=== PATIENT | female | born 1990 | race African-American/Black ===

== ENCOUNTER 2021-05-30 10:11 | Emergency (ER) | payer BC, OTHER ==
[~2021-05-30] VITALS: Ht 149.9 cm; Wt 72.7 kg
--- NOTE | 2021-05-30 11:08 | PHYS DOC ---
General Adult EDM: Chief Complaint: BACK PAIN - NO INJURY HPI: HPI: Patient is a 30 year old female who present to ER for evaluation of back pain started on last Friday. 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 Patient denies any bowel or bladder incontinence. Patient denies any injury. Patient denies any abdominal pain, no nausea vomiting. Patient denies any urinary frequency or urgency. Patient said the pain on her back is from the top of her back all the way down to the lower lumbar area. Patient denies any weakness or numbness in her lower extremity. Review of Systems: Review of Systems: Constitutional: Denies fever or chills. [] Eyes: Denies change in visual acuity. [] HENT: Denies nasal congestion or sore throat. [] Respiratory: Denies cough or shortness of breath. [] Cardiovascular: Denies chest pain or edema. [] GI: Denies abdominal pain, nausea, vomiting, bloody stools or diarrhea. [] : Denies dysuria. [] Musculoskeletal: Positive for back pain, no joint pain. Integument: Denies rash. [] Neurologic: Denies headache, focal weakness or sensory changes. [] Endocrine: Denies polyuria or polydipsia. [] Lymphatic: Denies swollen glands. [] Psychiatric: Denies depression or anxiety. [] Heart Score: C/O Chest Pain: N/A Risk Factors: Risk Factors: DM, Current or recent (<one month) smoker, HTN, HLP, family history of CAD, obesity. Risk Scores: Score 0 - 3: 2.5% MACE over next 6 weeks - Discharge Home Score 4 - 6: 20.3% MACE over next 6 weeks - Admit for Clinical Observation Score 7 - 10: 72.7% MACE over next 6 weeks - Early Invasive Strategies Physical Exam: PE: Constitutional: Well developed, well nourished, no acute distress, non-toxic appearance. [] HENT: Normocephalic, atraumatic, bilateral external ears normal, oropharynx moist, no oral exudates, nose normal. [] Eyes: PERRLA, EOMI, conjunctiva normal, no discharge. [] Neck: Normal range of motion, no tenderness, supple, no stridor. [] Cardiovascular:Heart rate regular rhythm, no murmur [] Lungs & Thorax: Bilateral breath sounds clear to auscultation [] Abdomen: Bowel sounds normal, soft, no tenderness, no masses, no pulsatile masses. [] Skin: Warm, dry, no erythema, no rash. [] Back: The muscle along the thoracic and lumbar spine is tender to palpation, there is no midline vertebral tenderness to palpation. Extremities: No tenderness, no cyanosis, no clubbing, ROM intact, no edema. [] Neurologic: Alert and oriented X 3, normal motor function, normal sensory function, no focal deficits noted. There is strong bilateral symmetrical dick[place] tendon reflexes. Psychologic: Affect normal, judgement normal, mood normal. [] Current Patient Data: Labs: Laboratory Tests Test 05/30/21 11:01 05/30/21 11:04 Urine Collection Type Void Urine Color Red Urine Clarity Clear Urine pH 6.0 Urine Specific [place] 1.025 Urine Protein 30 mg/dL Urine Glucose (UA) Negative mg/dL Urine Ketones (Stick) 40 mg/dL Urine Blood Large Urine Nitrite Negative Urine Bilirubin Small Urine Urobilinogen Dipstick 1.0 mg/dL Urine Leukocyte Esterase Small Urine RBC Tntc /HPF Urine WBC 11-20 /HPF Urine Squamous Epithelial Cells Few /LPF Urine Bacteria Moderate /HPF Urine Mucus Marked /LPF Bedside Urine HCG, Qualitative Hcg negative Current Medications Medications (Trade) Dose Ordered Sig/Anastasiya Route PRN Reason Start Time Stop Time Status Last Admin Dose Admin Ketorolac Tromethamine (Toradol Im) 60 mg 1X ONCE IM 05/30/21 12:15 05/30/21 12:16 DC 05/30/21 12:33 Methylprednisolone Sodium Succinate (SOLU-Medrol 125MG VIAL) 125 mg 1X ONCE IM 05/30/21 12:15 05/30/21 12:16 DC 05/30/21 12:33 Orphenadrine Citrate (Norflex) 60 mg 1X ONCE IM 05/30/21 12:30 05/30/21 12:31 DC 05/30/21 12:33 EKG: EKG: [] Radiology/Procedures: Radiology/Procedures: [facility] [address] [place] [address] IMAGING REPORT Signed PATIENT: CARITO CONNELL ACCOUNT: [id number] : 1990 LOCATION: ER AGE: 30 SEX: F EXAM STATUS: REG ER ORD. PHYSICIAN: BROCK BELLE DO REASON: BACK PAIN PROCEDURE: THORACIC SPINE 3V EXAM: 1. THORACIC SPINE 3 VIEWS. 2. LUMBAR SPINE 3 VIEWS. HISTORY: Back pain COMPARISON: None. FINDINGS: A minimal upper thoracic dextrocurvature is within normal limits. No fractures are identified. Intervertebral disc heights are maintained. Lumbar alignment is maintained. No fractures are identified. Intervertebral disc heights are maintained. IMPRESSION: 1. No fracture or malalignment. Electronically signed by: Elijah Mixon MD (05/30/2021 12:06 PM) [id number] DICTATED and SIGNED BY: JAQUI MIXON MD DATE: 05/30/21 [id number] 0 Course & Med Decision Making: Course & Med Decision Making Pertinent Labs and Imaging studies reviewed. (See chart for details) Patient is a 30-year-old female who present to ER due to back pain. X-ray did not show any acute problem. Patient will be discharged home, she will be prescribed NSAIDs and muscle relaxer, she will need to follow-up with her family physician for outpatient evaluation and treatment. Dragon Disclaimer: Dragon Disclaimer: This electronic medical record was generated, in whole or in part, using a voice recognition dictation system. Departure Departure Impression: Primary Impression: Back pain Disposition: 01 HOME / SELF CARE / HOMELESS Condition: STABLE Referrals: SHAYLA BELL MD (PCP) Please follow up with your doctor next week for reevaluation Patient Instructions: Back Pain, Adult Additional Instructions: Thank you for visiting our Emergency Department. We appreciate you trusting us with your care. If any additional problems come up don't hesitate to return to visit us. Please follow up with your primary care provider so they can plan additional care if needed and know about the problem that you had. If symptoms worsen come back to the Emergency Department. Any concerning symptoms that start such as chest pain, shortness of air, weakness or numbness on one side of the body, running high fevers or any other concerning symptoms return to the ER. Scripts Naproxen Sodium (ANAPROX DS) 550 Mg Tablet 1 TAB PO BID PRN for PAIN for 15 Days, #30 TAB 0 Refills Prov: BROCK BELLE DO 05/30/21 Cyclobenzaprine Hcl (CYCLOBENZAPRINE HCL) 10 Mg Tablet 1 TAB PO TID PRN for MUSCLE SPASMS, #30 TAB Prov: BROCK BELLE DO 05/30/21 BROCK BELLE DO May 30, 2021 11:08
[2021-05-30 11:19] LABS: BILIRUBIN,URINE SMALL (NEG); CLARITY,URINE CLEAR; NITRITE,URINE NEGATIVE (NEG); PROTEIN,URINE 30 mg/dL (NEG-TRACE)
[2021-05-30 11:22] LABS: COLOR,URINE RED
[2021-05-30 11:24] LABS: RBC,URINE TNTC /HPF (0-2)
[2021-05-30 11:25] LABS: BACTERIA,URINE MODERATE /HPF (0-FEW)
--- NOTE | 2021-05-30 12:09 | RAD ---
EXAM: 1. THORACIC SPINE 3 VIEWS. 2. LUMBAR SPINE 3 VIEWS. HISTORY: Back pain COMPARISON: None. FINDINGS: A minimal upper thoracic dextrocurvature is within normal limits. No fractures are identifi ed. Intervertebral disc heights are maintained. Lumbar alignment is maintained. No fractures are identified. Intervertebral disc heights are maintain ed. IMPRESSION: 1. No fracture or malalignment. Electronically signed by: Elijah Mixon MD (05/30/2021 12:06 PM) [id number]
[2021-05-30] MEDS ORDERED: methylPREDNISolone SOD SUCC PF 125 MG/2 ML VIAL. IM ONE (12:15)
[2021-05-30] MEDS ORDERED: KETOROLAC 60 MG/2 ML VIAL. IM ONE (12:15)
[2021-05-30] MEDS ORDERED: ORPHENADRINE CITRATE 60 MG/2 ML VIAL. IM ONE (12:30)
[2021-05-30] MEDS ORDERED: CYCL10TA2 PO (12:44)
[2021-05-30] MEDS ORDERED: NAPR-682 PO (12:44)
[2021-05-30 13:40] VITALS: BP 148/100
== END 2021-05-30 14:02 | disposition home or self-care (01) ==
LOC: ER 10:11
DX: M54.6 Pain in thoracic spine (principal); M54.5 Low back pain
CPT/HCPCS: 72072; 72100; 81001; 81025; 87086; 96372; 99285; J1885; J2360; J2930